=== PATIENT | female | born 1940 | race Caucasian/White ===

== ENCOUNTER 2020-09-02 05:30 | Emergency (ER) | payer MEDICARE, OTHER ==
[~2020-09-02 05:30] MED LIST: ACETAMINOPHEN325 MG PO; ASCORBIC ACID500 MG PO; ASPIRIN EC81 MG PO; CELEXA10 MG PO; CRESTOR10 MG PO; IRBESARTAN150 MG PO; METFORMIN HCL500 MG PO; NEURONTIN300 MG PO; VITAMIN B-121000 MC1 PO; VITAMIN D1000 UNIT PO; ZYRTEC10 M3 PO
[2020-09-02 05:49] LABS: BASOPHIL 0.8 % (0-2); EOSINOPHIL 5.4 % (0-7); HCT 44.4 % (37.0-47.0); HGB 14.3 g/dl (12.5-16.0); LYMPHOCYTE 18.7 % (15-48); MCH 31.7 pg (25.0-31.0); MCHC 32.2 g/dL (32.0-36.0); MCV 98.4 fL (78.0-100.0); MONOCYTE 5.7 % (0-12); MPV 9.1 fL (6.0-9.5); NEUTROPHIL 69.1 % (41-80); NRBC 0; PLT 311 K/uL (150-400); RBC 4.51 M/uL (4.20-5.40); RDW 12.5 % (11.5-14.0); WBC 9.2 K/uL (4.0-10.5)
[2020-09-02 06:12] LABS: ALBUMIN 4.2 g/dL (3.4-5.0); BILIRUBIN - TOTAL 0.4 mg/dL (0.2-1.0); BUN/CREAT RATIO (CALC) 14.5 RATIO; CREATININE 0.83 mg/dL (0.51-0.95); GLOBULIN (CALCULATION) 3.9 g/dL; POTASSIUM 4.2 mmol/L (3.5-5.1); TOTAL PROTEIN 8.1 g/dL (6.4-8.2)
[2020-09-02 06:44] LABS: CORONAVIRUS 2019 SARS-COV-2 NEGATIVE (NEGATIVE); INFLUENZA A NAA NEGATIVE (NEGATIVE)
[2020-10-07] MEDS ORDERED: BENICAR *OUT OF20 MG PO (13:34)
[2020-10-07] MEDS ORDERED: VITAMIN E PO (13:35)
[2020-10-07] MEDS ORDERED: PROBIOTIC1 EAC3 PO (13:36)
[2020-10-07] MEDS ORDERED: BENADRYL25 MG PO (13:37)
[2020-10-07] MEDS ORDERED: NEXIUM20 MG PO (13:37)
[2020-10-14] MEDS ORDERED: MOTRIN600 MG PO (09:24)
[2020-10-14] MEDS ORDERED: COLACE100 MG PO (09:24)
[2020-10-14] MEDS ORDERED: ACETAMINOPHEN500 M1 PO (09:24)
[2020-10-14] MEDS ORDERED: OXY-IR 5MG5 MG PO (09:24)
== END 2020-09-02 10:50 | disposition home or self-care (01) ==
LOC: FER 05:30
PROVIDERS: Student in an Organized Health Care Education/Training Program
DX: R07.89 Other chest pain (principal); K82.8 Other specified diseases of gallbladder; K80.20 Calculus of gallbladder without cholecystitis without obstruction; R06.02 Shortness of breath; E11.9 Type 2 diabetes mellitus without complications; I10 Essential (primary) hypertension; Z87.891 Personal history of nicotine dependence; Z88.5 Allergy status to narcotic agent; Z91.048 Other nonmedicinal substance allergy status; Z79.84 Long term (current) use of oral hypoglycemic drugs; Z79.82 Long term (current) use of aspirin; Z79.899 Other long term (current) drug therapy; Z20.822 Contact with and (suspected) exposure to COVID-19
CPT/HCPCS: 36415; 71275; 80053; 84484; 85025; 93005; Q9967; U0002

== ENCOUNTER → 2020-10-14 | Day surgery (SDC) | payer MEDICARE, OTHER ==
[~2020-10-14] VITALS: Ht 152.4 cm; Wt 63.5 kg
[~2020-10-14] MED LIST changes: +ACETAMINOPHEN500 M1 PO; +BENADRYL25 MG PO; +BENICAR *OUT OF20 MG PO; +COLACE100 MG PO; +MOTRIN600 MG PO; +NEXIUM20 MG PO; +OXY-IR 5MG5 MG PO; +PROBIOTIC1 EAC3 PO; +VITAMIN E PO
[2020-10-14 08:26] LABS: BUN/CREAT RATIO (CALC) 18.4 RATIO; CREATININE 0.76 mg/dL (0.51-0.95); POTASSIUM 3.9 mmol/L (3.5-5.1)
== END | disposition home or self-care (01) ==
LOC: FAS 06:50
PROVIDERS: Anesthesiology
DX: K80.10 Calculus of gallbladder with chronic cholecystitis without obstruction (principal); N28.89 Other specified disorders of kidney and ureter; I10 Essential (primary) hypertension; E11.9 Type 2 diabetes mellitus without complications; J44.9 Chronic obstructive pulmonary disease, unspecified; E78.5 Hyperlipidemia, unspecified; Z88.8 Allergy status to other drugs, medicaments and biological substances; Z79.82 Long term (current) use of aspirin; Z79.899 Other long term (current) drug therapy; Z83.3 Family history of diabetes mellitus; Z80.0 Family history of malignant neoplasm of digestive organs; Z87.891 Personal history of nicotine dependence
CPT/HCPCS: 36415; 80048; J0690; J1100; J1170; J1644; J1885; J2250; J2310; J2405; J2704; J2710; J3010; J7120